=== PATIENT | female | born 1965 | race Caucasian/White ===

== ENCOUNTER 2018-07-04 17:33 | Emergency (ER) | payer MEDICAID ==
[~2018-07-04] VITALS: Ht 167.6 cm; Wt 80.6 kg
[2018-07-04 17:57] VITALS: Ht 167.6 cm; Wt 80.6 kg
[2018-07-04] MEDS ORDERED: KETOROLAC 30 MG INJ IV STA (20:44)
[2018-07-04] MEDS ORDERED: SOD CHLORIDE 0.9% 1,000 ML IV STA (20:44)
[2018-07-04] MEDS ORDERED: ONDANSETRON 4 MG INJ IV STA (20:44)
[2018-07-04] MEDS ORDERED: ONDA4TAB14 PO (22:13)
[2018-07-04] MEDS ORDERED: PANT40TA3 PO (22:13)
[2018-07-04 22:17] VITALS: BP 148/80; PULSE 55; RESP 17
--- NOTE | 2018-07-04 23:13 | ERD ---
ER Documentation Chief Complaint Chief Complaint Complains of abdominal pain x days HPI Patient is a 52-year-old female with no medical problems who presents with abdominal pain. She has right upper quadrant abdominal pain for the past 4 days. She said that she felt "inflammation". She has pain with mild palpation. She has no fevers. She has vomiting and diarrhea. She has had no treatment as of yet. Upon review of old medical records this is the patient's first visit to the emergency department. She does not know the name of her primary doctor. ROS All systems reviewed and are negative except as per history of present illness. Medications Home Meds Active Scripts Ondansetron (Ondansetron Odt) 4 Mg Tab.rapdis, 4 MG PO Q6H PRN for NAUSEA AND/OR VOMITING, #10 TAB Prov:STEVIE MIRZA MD 07/04/18 Pantoprazole* (Protonix*) 40 Mg Tablet.dr, 40 MG PO DAILY, #20 TAB Prov:STEVIE MIRZA MD 07/04/18 Allergies Allergies: Coded Allergies: No Known Allergy (Unverified , 07/04/18) PMhx/Soc Medical and Surgical Hx: pt denies Medical Hx, pt denies Surgical Hx Hx Alcohol Use: No Hx Substance Use: No Hx Tobacco Use: No Smoking Status: Never smoker FmHx Family History: diabetes Physical Exam Vitals Vital Signs Date Temp Pulse Resp B/P (MAP) Pulse Ox O2 O2 Flow FiO2 Time Delivery Rate 07/04/18 55 17 148/80 99 Room Air 22:17 (102) 07/04/18 98.6 66 20 126/63 100 17:57 (84) Physical Exam Const: No acute distress Head: Atraumatic Eyes: Normal Conjunctiva ENT: Normal External Ears, Nose and Mouth. Neck: Full range of motion. No meningismus. Resp: Clear to auscultation bilaterally Cardio: Regular rate and rhythm, no murmurs Abd: Soft, mild right upper quadrant tenderness to palpation without rebound or guarding Skin: No petechiae or rashes Back: No midline or flank tenderness Ext: No cyanosis, or edema Neur: Awake and alert Psych: Normal Mood and Affect Result Diagram: 07/04/18204907/04/182049 Results 24 hrs Laboratory Tests Test 07/04/18 20:50 White Blood Count 8.9 10^3/ul Red Blood Count 4.55 10^6/ul Hemoglobin 12.8 g/dl Hematocrit 39.4 % Mean Corpuscular Volume 86.6 fl Mean Corpuscular Hemoglobin 28.1 pg Mean Corpuscular Hemoglobin Concent 32.5 g/dl Red Cell Distribution Width 13.0 % Platelet Count 272 10^3/UL Mean Platelet Volume 9.2 fl Immature Granulocytes % 0.300 % Neutrophils % 47.5 % Lymphocytes % 45.6 % Monocytes % 3.8 % Eosinophils % 2.6 % Basophils % 0.2 % Nucleated Red Blood Cells % 0.0 /100WBC Immature Granulocytes # 0.030 10^3/ul Neutrophils # 4.2 10^3/ul Lymphocytes # 4.1 10^3/ul Monocytes # 0.3 10^3/ul Eosinophils # 0.2 10^3/ul Basophils # 0.0 10^3/ul Nucleated Red Blood Cells # 0.0 10^3/ul Urine Color YELLOW Urine Clarity SLIGHTLY CLOUDY Urine pH 5.0 Urine Specific Fay 1.020 Urine Ketones NEGATIVE mg/dL Urine Nitrite NEGATIVE mg/dL Urine Bilirubin NEGATIVE mg/dL Urine Urobilinogen NEGATIVE mg/dL Urine Leukocyte Esterase NEGATIVE Karena/ul Urine Microscopic RBC 1 /HPF Urine Microscopic WBC 1 /HPF Urine Squamous Epithelial Cells FEW /HPF Urine Hemoglobin 1+ mg/dL Urine Glucose NEGATIVE mg/dL Urine Total Protein NEGATIVE mg/dl Sodium Level 143 mmol/L Potassium Level 3.9 mmol/L Chloride Level 102 mmol/L Carbon Dioxide Level 31 mmol/L Anion Gap 10 Blood Urea Nitrogen 23 mg/dl Creatinine 0.76 mg/dl Est Glomerular Filtrat Rate mL/min > 60 mL/min Glucose Level 109 mg/dl Calcium Level 9.8 mg/dl Total Bilirubin 0.2 mg/dl Direct Bilirubin 0.00 mg/dl Indirect Bilirubin 0.2 mg/dl Aspartate Amino Transf (AST/SGOT) 34 IU/L Alanine Aminotransferase (ALT/SGPT) 22 IU/L Alkaline Phosphatase 114 IU/L Total Protein 8.6 g/dl Albumin 4.4 g/dl Globulin 4.20 g/dl Albumin/Globulin Ratio 1.04 Lipase 144 U/L Current Medications Medications Dose Sig/Benji Start Time Status Last (Trade) Ordered Route PRN Stop Time Admin Dose Reason Admin Sodium 1,000 ml @ Q1H STAT 07/04/18 DC 07/04/18 Chloride 1,000 mls/hr IV 20:44 20:59 07/04/18 21:43 Ondansetron 4 mg ONCE STAT 07/04/18 DC 07/04/18 HCl (Zofran IV 20:44 20:59 Inj) 07/04/18 20:46 Ketorolac 30 mg ONCE STAT 07/04/18 DC 07/04/18 Tromethamine IV 20:44 20:58 (Toradol) 07/04/18 20:46 Procedures/MDM Ultrasound the gallbladder shows diffuse fatty infiltration of the liver but otherwise negative per radiology. Patient is a 52-year-old female who presents with abdominal pain with vomiting and diarrhea. Ultrasound is negative for cholecystitis. Laboratory studies are basically normal. At this point I believe patient likely has a viral syndrome. The patient will be discharged with a prescription for Protonix and Zofran. I doubt cholecystitis, pancreatitis, appendicitis, or bowel obstruction. The patient will need to follow-up closely with her primary doctor within 24 hours. The patient can return for any worsening symptoms. Departure Diagnosis: Primary Impression: Abdominal pain Abdominal location: right upper quadrant Qualified Codes: R10.11 - Right upper quadrant pain Condition: Fair Patient Instructions: Abdominal Pain Referrals: Your doctor Additional Instructions: Llame al doctor MAANA y davon anita YOSVANY PARA DENTRO DE 1-2 BEAVER.Dgale a la secretaria que nosotros le instruimos hacer esta yosvany.Avise o llame si berman condicin se empeora antes de la yosvany. Regresa aqui si peor o no mejor. STEVIE MIRZA MD Jul 04, 2018 23:13
== END 2018-07-04 22:26 | disposition home or self-care (01) ==
LOC: E/R 17:33
DX: R10.11 Right upper quadrant pain (principal); R11.10 Vomiting, unspecified
CPT/HCPCS: 36415; 76705; 80053; 81001; 83690; 85025; 96374; 96375; J1885; J2405; J7030; Z7502

== ENCOUNTER 2018-07-07 08:47 | Emergency (ER) | payer SELFPAY ==
[~2018-07-07] VITALS: Wt 75.0 kg
[~2018-07-07 08:47] MED LIST: ONDA4TAB14 PO; PANT40TA3 PO
[2018-07-07 08:56] VITALS: BP 157/65; PULSE 54; RESP 18
== END 2018-07-07 09:17 | disposition left against medical advice (07) ==
LOC: E/R 08:47
DX: Z53.21 Procedure and treatment not carried out due to patient leaving prior to being seen by health care provider (principal)

== ENCOUNTER 2018-10-02 12:12 | Emergency (ER) | payer MEDICAID ==
[~2018-10-02] VITALS: Ht 157.5 cm; Wt 79.9 kg
[2018-10-02 12:13] VITALS: Ht 157.5 cm; Wt 79.9 kg
[2018-10-02] MEDS ORDERED: SOD CHLORIDE 0.9% 1,000 ML IV STA (12:57)
[2018-10-02] MEDS ORDERED: morphine 4 MG/ML VIAL IV STA (12:57)
[2018-10-02] MEDS ORDERED: ONDANSETRON 4 MG INJ IV STA (12:57)
--- NOTE | 2018-10-02 13:08 | ERD ---
ER Documentation Chief Complaint Chief Complaint SMITH, epigastric w/nausea, vomitting x2wks HPI This is a 52-year-old female that presents to the emergency department complaining of intermittent epigastric pain for the past 2 weeks. Indicates that the pain is localized to the epigastric region and does radiate to the right upper quadrant and tip of her right scapula. She indicates she had a bandlike headache. She is been nauseous. She has had several episodes of nonbloody nonbilious emesis over the past 2 weeks. She indicates that food exacerbates her symptoms. She also has had a retrosternal burning pain with increased acid production. She states a bandlike headache is worse when she fe els nauseous and experiences emesis. She states this is not the worst headache of her life. She said no fevers or shaking or chills. She denies any neck pain. She denies any chest pain or pressure that radiates to the neck arm back or jaw. She did have episodes of loose watery stools within this 2-week. But indicates this has improved. She denies any recent hospitalizations. She has not been on any antibiotics. ROS All systems reviewed and are negative except as per history of present illness. Medications Home Meds Active Scripts Ondansetron (Ondansetron Odt) 4 Mg Tab.rapdis, 4 MG PO Q6H PRN for NAUSEA AND/OR VOMITING, #10 TAB Prov:STEVIE MIRZA MD 07/04/18 Pantoprazole* (Protonix*) 40 Mg Tablet.dr, 40 MG PO DAILY, #20 TAB Prov:STEVIE MIRZA MD 07/04/18 Allergies Allergies: Coded Allergies: No Known Allergy (Unverified , 07/04/18) PMhx/Soc Medical and Surgical Hx: pt denies Medical Hx, pt denies Surgical Hx Hx Alcohol Use: No Hx Substance Use: No Hx Tobacco Use: No Smoking Status: Never smoker Physical Exam Vitals Vital Signs Date Temp Pulse Resp B/P (MAP) Pulse Ox O2 O2 Flow FiO2 Time Delivery Rate 10/02/18 98.2 64 18 125/59 97 12:13 (81) Physical Exam Constitutional:Well-developed. Well-nourished. HEENT:Normocephalic. Atraumatic.Pupils were equal round reactive to light. Moist mucous membranes. Funduscopy exam shows sharp optic disks and venous pulsations are present Neck: No nuchal rigidity. No lymphadenopathy. No posterior cervical spine tenderness or step-offs. Respiratory: Not using accessory muscles of respiration.Lungs were clear to auscultation bilaterally. No rhonchi. No rales. No wheezing. Cardiovascular: Regular rate regular rhythm.No murmurs. No rubs were appreciated.S1, S2 normal. Distal pulses are palpable 2+ bilaterally. GI: Abdomen was soft. Epigastric tenderness and tenderness in the right upper quadrant negative Perry sign. Non Distended. No pulsatile abdominal masses or bruits. No rebound. No guarding. Bowel sounds were present and normal. Muscle skeletal: Full range of motion of both the upper and lower extremities bilaterally.Normal muscle tone.No assymetrical calf tenderness or swelling. Skin: No petechia, no purpura. No lesions on the palms or the soles of the feet. No maculopapular rash. NEURO: Patient was alert, awake, orientated x3.No facial droop. Gait observed and normal with no ataxia.Speech had regular rate and rhythm. No focal neurological deficits. Results 24 hrs Current Medications Medications Dose Sig/Benji Start Time Status Last (Trade) Ordered Route PRN Stop Time Admin Dose Reason Admin Sodium 1,000 ml @ Q1H STAT 10/02/18 Chloride 1,000 mls/hr IV 12:57 10/02/18 13:56 Morphine 4 mg ONCE STAT 10/02/18 DC Sulfate IV 12:57 (morphine) 10/02/18 13:01 Ondansetron 4 mg ONCE STAT 10/02/18 DC HCl (Zofran IV 12:57 Inj) 10/02/18 13:01 Procedures/MDM The patient presented to the emergency department with epigastric pain. My differential diagnosis included but was not limited to abdominal aortic aneurysm, choledocholithiasis, gallstone ileus, renal colic, pyelonephritis, pancreatitis, peptic ulcer disease, atypical myocardical infarction, mesenteric ischemia, GERD, pulmonary infarction. 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 Patient was given intravenous morphine and Zofran An EKG was obtained to rule out myocardial ischemia. There was no elevation of LFTs to suggest ductal obstruction, cholangitis, cholecystiitis or hepatitis. Given that the urinalysis did not show bilirubinuria, my suspicion for common duct obstruction or hepatitis was low. Departure Condition: VENUS Fernandez MD Oct 02, 2018 13:08
[2018-10-02] MEDS ORDERED: BELLADONNA/PHENOBARBITAL TAB PO STA (16:19)
[2018-10-02] MEDS ORDERED: LIDOCAINE/MYLANTA 40 ML BTL PO STA (16:19)
[2018-10-02 16:32] VITALS: BP 130/68; PULSE 60; RESP 14
[2018-10-02] MEDS ORDERED: SUCR1TAB56 PO (17:10)
[2018-10-02] MEDS ORDERED: FAMO-96 PO (17:21)
== END 2018-10-02 17:30 | disposition home or self-care (01) ==
LOC: E/R 12:12
DX: R10.13 Epigastric pain (principal); R10.11 Right upper quadrant pain; R11.2 Nausea with vomiting, unspecified
CPT/HCPCS: 36415; 76705; 80053; 81001; 82150; 83690; 84484; 85025; 85610; 85730; 87086; 93005; 96361; 96374; 96375; J2270; J2405; J7030; Z7502; Z7610

== ENCOUNTER 2018-10-10 14:33 | Emergency (ER) | payer MEDICAID ==
[~2018-10-10] VITALS: Ht 160 cm; Wt 80.0 kg
[~2018-10-10 14:33] MED LIST changes: +FAMO-96 PO; -ONDA4TAB14 PO; -PANT40TA3 PO; +SUCR1TAB56 PO
[2018-10-10 14:38] VITALS: Ht 160 cm; Wt 80.0 kg
[2018-10-10] MEDS ORDERED: METHYLPREDNISOLONE 125 MG INJ IM STA (14:55)
[2018-10-10] MEDS ORDERED: ALBUTEROL 0.083% (NEB) 2.5 MG/3 ML AMP NEB STA (14:55)
[2018-10-10] MEDS ORDERED: IPRATROPIUM (NEB) 0.5 MG/2.5 ML AMP NEB STA (14:55)
--- NOTE | 2018-10-10 15:02 | ERD ---
ER Documentation Chief Complaint Chief Complaint COUGH AND HEACAHE X 1 WEEK GOT WORSE HPI Patient is a 52 years old female with PMHx of Asthma presenting to the clinic for worsening cough x 1 week. Patient reports of green sputum production, difficulty breathing, throat pain, coryza, fever, chills, and mild headache. Patient admits to OTC Robitussin without resolution. ROS All systems reviewed and are negative except as per history of present illness. Medications Home Meds Active Scripts Nebulizer (Compact Compressor Nebulizer) 1 Each Each, EACH , #1 Prov:SKIP GARCIA PA-C 10/10/18 Albuterol Sulfate* (Albuterol Sulfate* Neb) 0.083%-3 Ml Neb, 2.5 MG NEB Q4 PRN for SHORTNESS OF BREATH, #30 EA Prov:SKIP GARCIA PA-C 10/10/18 Methylprednisolone* (Medrol* DOSE PACK) 4 Mg/Dose-Pack Tab.ds.pk, 4 MG PO . DIRECTED for 5 Days, PACKET Prov:SKIP GARCIA PA-C 10/10/18 Famotidine* (Pepcid*) 20 Mg Tablet, 20 MG PO BID for 20 Days, TAB Prov:VENUS KERN MD 10/02/18 Sucralfate* (Carafate*) 1 Gm Tab, 1 GM PO AC MEALS AND BEDTIME, #30 TAB Prov:VENUS KERN MD 10/02/18 Allergies Allergies: Coded Allergies: No Known Allergy (Unverified , 10/10/18) PMhx/Soc Asthma History of Surgery: No Anesthesia Reaction: No Hx Neurological Disorder: No Hx Respiratory Disorders: Yes Hx Cardiac Disorders: No Hx Psychiatric Problems: No Hx Miscellaneous Medical Probl: No Hx Alcohol Use: No Hx Substance Use: No Hx Tobacco Use: No FmHx Family History: No diabetes, No coronary disease, No other Physical Exam Vitals Vital Signs Date Temp Pulse Resp B/P (MAP) Pulse Ox O2 O2 Flow FiO2 Time Delivery Rate 10/10/18 98.1 74 20 122/68 98 Room Air 16:20 (86) 10/10/18 56 24 96 21 15:19 10/10/18 98.4 64 20 121/73 98 14:38 (89) Physical Exam Const: No acute distress Head: Atraumatic Eyes: Normal Conjunctiva ENT: Normal External Ears, Nose and Mouth. Neck: Full range of motion. No meningismus. Resp: Severe diffuse wheezing with bilateral lower lobe rales. No accessory muscle usage noted. Cardio: Regular rate and rhythm, no murmurs Neur: Awake and alert Psych: Normal Mood and Affect Results 24 hrs Current Medications Medications Dose Sig/Benji Start Time Status Last (Trade) Ordered Route PRN Stop Time Admin Dose Reason Admin Albuterol 5 mg ONCE STAT 10/10/18 DC 10/10/18 (Proventil NEB 14:55 15:18 0.083% (Neb)) 10/10/18 14:57 Ipratropium 1.5 mg ONCE STAT 10/10/18 DC 10/10/18 [place] NEB 14:55 15:18 (Atrovent 10/10/18 14:57 0.02% (Neb)) 125 mg ONCE STAT 10/10/18 DC 10/10/18 Methylprednis IM 14:55 15:00 olone Sodium 10/10/18 14:57 Succinate (Solu-Medrol) Procedures/MDM Patient was seen and evaluated for worsening cough. CXR revealed No evidence of acute cardiopulmonary process. Patient was given nebulizer treatment and Solumedrol IM with significant improvement of symptoms. Repeat pulmonary exam revealed mild expiratory wheezing only. Patient is stable and ready for discharge. F/U with PCP. Patient will be discharged with Medrol Dosepak, Nebulizer. Patient was advised to continue taking Robitussin. Departure Diagnosis: Primary Impression: Cough Condition: Stable Patient Instructions: Cough, Chronic, Uncertain Cause, (Adult) Referrals: [facility] Additional Instructions: Patient advised to return to the ED immediately for new or worsening symptoms. Patient advised to follow up with primary care provider in the next 24-48 hours. Patient verbalized understanding and agrees with treatment plan and course of action. If patient has no primary care they may follow up with [facility] [address] [place] [id number] or [facility] [address] [place] [address] or [facility] [address] [place] [address] SKIP GARCIA PA-C Oct 10, 2018 15:02
[2018-10-10] MEDS ORDERED: MED4DP PO (15:46)
[2018-10-10] MEDS ORDERED: NEBU1KIT3 MC (15:46)
[2018-10-10] MEDS ORDERED: ALBU2.5V3 NEB (15:46)
[2018-10-10 16:20] VITALS: BP 122/68; PULSE 74; RESP 20
== END 2018-10-10 16:23 | disposition home or self-care (01) ==
LOC: FTE 14:33
DX: J45.901 Unspecified asthma with (acute) exacerbation (principal)
CPT/HCPCS: 71046; 94664; 96372; J2930; Z7502; Z7610